=== PATIENT | male | born 1965 | race Caucasian/White ===

== ENCOUNTER 2019-01-14 13:36 | Emergency (ER) | payer MEDICAID ==
[~2019-01-14] VITALS: Ht 165.1 cm; Wt 61.2 kg
[2019-01-14] MEDS ORDERED: KEFLEX500 MG PO (13:54)
== END 2019-01-14 14:19 | disposition home or self-care (01) ==
LOC: ED 13:36
DX: L03.113 Cellulitis of right upper limb (principal); F17.200 Nicotine dependence, unspecified, uncomplicated
CPT/HCPCS: 99282